=== PATIENT | female | born 1970 | race Two or more races ===

== ENCOUNTER 2016-12-12 00:56 | Emergency (ER) | payer MEDICAID ==
[~2016-12-12] VITALS: Ht 160 cm; Wt 61.2 kg
[2016-12-12 01:10] VITALS: BP 158/84
[2016-12-12 03:45] LABS: Basophils # (auto) 0 uL; Basophils % (auto) 0.3 % (0.0-2.0); Eosinophils # (auto) 0 uL; Eosinophils % (auto) 0.3 % (0.0-7.0); Hemoglobin 13.1 g/dL (12.2-16.2); Lymphocytes # (auto) 2.4 uL; Lymphocytes % (auto) 26.7 % (10.0-50.0); Mean Corpuscular Hemoglobin 30.6 pg (28.0-32.0); Mean Corpuscular Hgb Conc. 34.4 g/dL (32.0-36.0); Mean Corpuscular Volume 88.9 fL (80.0-100.0); Mean Platelet Volume 7.9 fL (7.4-10.4); Monocytes # (auto) 0.4 uL; Monocytes % (auto) 4.2 % (0.0-12.0); Neutrophils # (auto) 6.2 uL; Neutrophils % (auto) 68.5 % (37.0-80.0); Platelet Count (auto) 343 10^3/uL (140-450)
[2016-12-12 04:08] LABS: Urine Bilirubin Negative (Negative); Urine Blood TRACE /uL (Negative); Urine Color Yellow (Yellow); Urine Glucose Normal (Normal); Urine Hyaline Cast FEW /lpf (0 - 2); Urine Ketone Negative (Negative); Urine Mucus FEW (None Seen); Urine Nitrite Negative (Negative); Urine RBC 2 /hpf (0 - 4); Urine Squamous Epithelial Cell FEW /hpf (<5); Urine Urobilinogen Normal (Negative); Urine pH 5.5 (5.0-8.0)
[2016-12-12 04:25] LABS: Albumin 4.2 g/dL (3.4-5.0); BUN/Creatinine Ratio 10.8; Bilirubin, Total 0.5 mg/dL (0.2-1.0); Calcium 9.1 mg/dL (8.5-10.1); Total Protein 7.7 g/dL (6.4-8.2)
== END 2016-12-12 04:45 | disposition home or self-care (01) ==
LOC: EDBD 00:56 → ER 01:10
DX: F41.9 Anxiety disorder, unspecified (principal); N39.0 Urinary tract infection, site not specified
CPT/HCPCS: 36415; 80053; 81001; 85025; 93005; 99285; G0434

== ENCOUNTER → 2024-04-22 | Outpatient (CLI) | payer MEDICAID | END | disposition home or self-care (01) | LOC: XYW 07:42 | PROVIDERS: ATTEND Internal Medicine | DX: R00.1 Bradycardia, unspecified (principal) | CPT/HCPCS: 93306 ==

== ENCOUNTER 2024-12-22 17:40 | Emergency (ER) | payer MEDICAID | END 2024-12-22 18:11 | disposition left against medical advice (07) | LOC: ER 17:40 | DX: J02.9 Acute pharyngitis, unspecified (principal); Z53.21 Procedure and treatment not carried out due to patient leaving prior to being seen by health care provider ==